=== PATIENT | female | born 1960 | race American Indian/Alaskan Native ===

== ENCOUNTER 2020-04-24 09:01 | Emergency (ER) | payer SELFPAY ==
[2020-04-24 09:36] VITALS: BP 152/51
--- NOTE | 2020-04-24 10:14 | XRay Report ---
RIGHT FOOT 3 VIEW(S) INDICATION / CLINICAL INFORMATION: Can being spell on the right foot causing pain and swelling. COMPARISON: None available. FINDINGS: BONES / JOINT(S): No acute fracture or subluxation. No significant arthritis. SOFT TISSUES: No significant abnormality. ADDITIONAL FINDINGS: None. Signer Name: Juan Watkins MD Signed: 04/24/2020 10:09 AM Workstation Name: [id number]
--- NOTE | 2020-04-24 16:26 | Emergency Department Report ---
ED Lower Extremity HPI - General Chief Complaint: Extremity Injury, Lower Stated Complaint: INJURY TO RT FOOT Time Seen by Provider: 04/24/20 15:41 Source: patient Mode of arrival: Ambulatory Limitations: No Limitations - History of Present Illness Initial Comments: Patient is a 59-year-old female presents emergency room complaints of a right foot injury that occurred 3 days ago. She states that she dropped a large can of string beans on her foot. She states that she has pain to her foot and her right little toe. She denies any laceration or abrasion or bleeding. She denies any numbness or weakness. She denies ever injuring in the past. She is able to ambulate. No past medical history. No allergies to medications. - Related Data Previous Rx's Medication Instructions Recorded Last Taken Type Naproxen [EC-Naproxen] 500 mg PO BID PRN #14 tablet. 04/24/20 Unknown Rx Allergies Allergy/AdvReac Type Severity Reaction Status Date / Time No Known Allergies Allergy Unverified 04/24/20 09:32 ED Review of Systems ROS: Stated complaint: INJURY TO RT FOOT Other details as noted in HPI Comment: All other systems reviewed and negative ED Past Medical Hx - Past Medical History Previous Medical History?: No - Surgical History Past Surgical History?: No - Medications Home Medications: Home Medications Medication Instructions Recorded Confirmed Last Taken Type Naproxen [EC-Naproxen] 500 mg PO BID PRN #14 tablet. 04/24/20 Unknown Rx ED Physical Exam - General Limitations: No Limitations General appearance: alert, in no apparent distress - Head Head exam: Present: atraumatic, normocephalic - Eye Eye exam: Present: normal appearance - ENT ENT exam: Present: mucous membranes moist - Respiratory Respiratory exam: Absent: respiratory distress, accessory muscle use - Extremities Exam Extremities exam: Present: other (ttp to the right dorsal foot and right little toe, small callus present to the right little toe, FROM of the right ankle, foot, and toes, no deformity, neurovascularly intact) - Neurological Exam Neurological exam: Present: alert, oriented X3 - Psychiatric Psychiatric exam: Present: normal affect, normal mood - Skin Skin exam: Present: warm, dry ED Course Vital Signs 04/24/20 09:32 Temperature 98.0 F Pulse Rate 67 Respiratory 18 Rate Blood Pressure 152/51 [Right] O2 Sat by Pulse 98 Oximetry ED Lower Extremity MDM - Radiology Data Radiology results: report reviewed RIGHT FOOT 3 VIEW(S) INDICATION / CLINICAL INFORMATION: Can being spell on the right foot causing pain and swelling. COMPARISON: None available. FINDINGS: BONES / JOINT(S): No acute fracture or subluxation. No significant arthritis. SOFT TISSUES: No significant abnormality. ADDITIONAL FINDINGS: None. Signer Name: Juan Gonsalez MD Signed: 04/24/2020 10:09 AM Workstation Name: [id number] Transcribed By: Dictated By: JUAN GONSALEZ Electronically Authenticated By: JUAN GONSALEZ Signed Date/Time: 04/24/20 1009 DD/ 1008 TD/TT: - Medical Decision Making Patient is a 59-year-old female presents emergency room complaints of a right foot injury that occurred 3 days ago. She states that she dropped a large can of string beans on her foot. She states that she has pain to her foot and her right little toe. She denies any laceration or abrasion or bleeding. She denies any numbness or weakness. She denies ever injuring in the past. She is able to ambulate. No past medical history. No allergies to medications. VSS. on exam: ttp to the right dorsal foot and right little toe, small callus present to the right little toe, FROM of the right ankle, foot, and toes, no deformity, neurovascularly intact. XR right foot: BONES / JOINT(S): No acute fracture or subluxation. No significant arthritis. SOFT TISSUES: No significant abnormality. ADDITIONAL FINDINGS: None. Patient placed in postop orthopedic shoe by nurse and remained neurovascularly intact. Patient given prescription for naproxen. Discussed RICE therapy with patient. Patient will be referred to orthopedic. Advised patient to please take medication as prescribed as needed. Follow-up with orthopedic doctor for reexamination. May use ice for 15 minutes at a time, rest, elevation of the leg. Return to emergency room for any new or worsening symptoms. - Differential Diagnosis Strain, sprain, fracture, dislocation, contusion, tendinitis Critical care attestation.: If time is entered above; I have spent that time in minutes in the direct care of this critically ill patient, excluding procedure time. ED Disposition Clinical Impression: Right foot pain, Callus Toe pain Qualifiers: Laterality: right Qualified Code(s): M79.674 - Pain in right toe(s) Contusion of foot Qualifiers: Encounter type: initial encounter Laterality: right Qualified Code(s): S90.31XA - Contusion of right foot, initial encounter Disposition: TO HOME OR SELFCARE Is pt being admited?: No Does the pt Need Aspirin: No Condition: Stable Instructions: Corns and Calluses, Foot Contusion Additional Instructions: please take medication as prescribed as needed. Follow-up with orthopedic doctor for reexamination. May use ice for 15 minutes at a time, rest, elevation of the leg. Return to emergency room for any new or worsening symptoms. Prescriptions: Naproxen [EC-Naproxen] 500 mg PO BID PRN #14 tablet.dr BAÑUELOS Reason: pain Referrals: PRIMARY CAREMD [Primary Care Provider] - 2-3 Days JAM DOTY MD [Staff Physician] - 2-3 Days [facility] [Provider Group] - 2-3 Days Forms: Work/School Release Form(ED) Time of Disposition: 16:26 Print Language: EQUATORIAL GUINEAN
== END 2020-04-24 16:49 | disposition home or self-care (01) ==
LOC: ED 09:01
DX: S90.31XA Contusion of right foot, initial encounter (principal); M79.674 Pain in right toe(s); L84 Corns and callosities; Z79.899 Other long term (current) drug therapy; X50.9XXA Other and unspecified overexertion or strenuous movements or postures, initial encounter; Y93.89 Activity, other specified; Y92.89 Other specified places as the place of occurrence of the external cause; Y99.8 Other external cause status
CPT/HCPCS: 99283